=== PATIENT | female | born 1995 | race Caucasian/White ===

== ENCOUNTER → 2016-08-05 | Outpatient (CLI) | payer BC, OTHER ==
[~2016-08-05] MED LIST: ANUS2.5C2 TOP; DOCU10ELUD PO; IBUP600T26 PO; MOM30SS PO; PRENTAB9 PO; TYLE325T5 PO
[2016-08-05 15:11] LABS: BASO % 0.3 % (0.0-1.0); EOS # 0.1 K/mm3 (0.0-0.50); EOS % 1.4 % (0.0-3.0); LARGE UNSTAINED CELL # 0.1 K/mm3 (0.0-0.4); LARGE UNSTAINED CELL % 1.2 % (0.0-4.0); LYMPH # 1.5 K/mm3 (1.5-6.5); LYMPH % 17.1 % (24.0-44.0); MEAN CORPUSCULAR HGB CONC 34.5 g/dl (32.0-36.5); MONO # 0.3 K/mm3 (0.0-0.8); MONO % 3.3 % (0.0-5.0); NEUTROPHILS # 6.3 K/mm3 (1.8-7.7); NEUTROPHILS % 76.7 % (36.0-66.0); PLATELET COUNT, AUTOMATED 249 k/mm3 (150-450); RED CELL DISTRIBUTION WIDTH 14.3 % (11.5-14.5); WHITE BLOOD COUNT 8.2 K/mm3 (4.0-10.0)
[2016-08-06 10:45] LABS: HBsAg Prenatal NEGATIVE (NEGATIVE)
== END ==
LOC: M LAB 13:39
PROVIDERS: ATTEND Specialist
DX: Z34.81 Encounter for supervision of other normal pregnancy, first trimester (principal)

== ENCOUNTER → 2016-08-14 | Outpatient (CLI) | payer BC, OTHER ==
--- NOTE | 2016-08-15 05:27 | REP ---
Clinical: Anatomical evaluation. Comparison: None. Findings: Examination demonstrates a single live intrauterine in variable presentation. motion is identified by technologist. Placenta is noted posteriorly and grade 0 without evidence for placenta previa or abruption. Amniotic fluid volume is normal. Cervix measures 4.1 cm in length and appears closed. No evidence for nuchal cord. Gestational age by LMP 18 weeks 3 days with VERN 01/12/2017 . Gestational age by current measurements 18 weeks 6 days with VERN 01/09/2017 . FHR equals 147 beats per minute. BPD 4.1 cm 18 weeks 2 days HC 16.0 cm 18 weeks 6 days AC 14.0 cm 19 weeks 3 days FL 2.7 cm 18 weeks 2 days HL 2.9 cm 19 weeks 3 days HC/AC ratio 1.15 Estimated weight 260 grams ( 63rd percentile). Anatomical assessment demonstrates normal structures including cranium, choroid plexus, cavum, cerebellum/posterior fossa, facial features, lungs, four-chamber heart/ventricular outflow tracts, diaphragm, stomach, cord insertion/three-vessel cord, kidneys/bladder, spine, and extremities. Impression: 1. Single live intrauterine in variable presentation demonstrating appropriate interval growth. 2. Anatomical assessment is complete and normal. Signed by Jose Levy MD 08/15/2016 05:19 A
== END ==
LOC: M RAD 16:10
PROVIDERS: ATTEND Obstetrics & Gynecology
DX: Z36 Encounter for antenatal screening of mother (principal); Z3A.18 18 weeks gestation of pregnancy

== ENCOUNTER → 2016-09-18 | Outpatient (REF) | payer BC, OTHER | LOC: M LAB REF 13:07 | PROVIDERS: ATTEND Specialist | DX: Z36 Encounter for antenatal screening of mother (principal) ==

== ENCOUNTER → 2016-10-23 | Outpatient (REF) | payer OTHER | LOC: M LAB REF 16:55 | PROVIDERS: ATTEND Specialist | DX: Z36 Encounter for antenatal screening of mother (principal) ==

== ENCOUNTER → 2016-11-06 | Outpatient (CLI) | payer BC, OTHER ==
[2016-11-06 15:07] LABS: BASO % 0.3 % (0.0-1.0); EOS # 0.2 K/mm3 (0.0-0.50); EOS % 1.6 % (0.0-3.0); LARGE UNSTAINED CELL # 0.2 K/mm3 (0.0-0.4); LARGE UNSTAINED CELL % 1.8 % (0.0-4.0); LYMPH # 1.6 K/mm3 (1.5-6.5); LYMPH % 14.5 % (24.0-44.0); MEAN CORPUSCULAR HEMOGLOBIN 28.5 pg (27.0-33.0); MEAN CORPUSCULAR HGB CONC 33.3 g/dl (32.0-36.5); MEAN CORPUSCULAR VOLUME 85.6 fl (80.0-96.0); MONO # 0.4 K/mm3 (0.0-0.8); MONO % 3.7 % (0.0-5.0); NEUTROPHILS # 7.8 K/mm3 (1.8-7.7); NEUTROPHILS % 78.1 % (36.0-66.0); PLATELET COUNT, AUTOMATED 213 k/mm3 (150-450)
== END ==
LOC: M LAB 13:10
PROVIDERS: ATTEND Specialist
DX: Z34.82 Encounter for supervision of other normal pregnancy, second trimester (principal)

== ENCOUNTER → 2016-12-23 | Outpatient (CLI) | payer BC, OTHER ==
--- NOTE | 2016-12-23 15:52 | REP ---
OB ULTRASOUND: Real-time sonographic evaluation of the gravid uterus is performed. There is a single living intrauterine gestation. Estimated gestational age is 37 weeks 1 day. EDC 01/12/2017. Today's measurements indicate appropriate growth. BPD 94 mm = 38 weeks 0 days, 63rd percentile HC 338 mm = 38 weeks 6 days, 79th percentile AC 342 mm = 38 weeks 1 day, 65th percentile Femur length 76 mm = 38 weeks 5 days, 74th percentile HC/AC ratio 0.99 within normal range. Estimated weight 3459 grams, 75th percentile. Cervix is closed and measures 4.2 cm in length. heart rate 139 beats per minute. Amniotic fluid within normal limits, JEANNE 16.5 within normal range of 7.5-24.4. S/D ratio 2.12 within normal range. RI 0.53 slightly below normal range of 0.59 to 0.75. SEEN/GROSSLY UNREMARKABLE Lateral ventricles No Posterior fossa No Upper lip Yes Four-chamber heart Yes LVOT Yes RVOT Yes Stomach Yes Cord insertion Yes Three vessel cord Yes Kidneys Yes Bladder Yes Spine Yes position: Vertex. Placenta: Fundal and grade 1 with no previa or abruption. Signed by Román Wade MD 12/24/2016 04:30 P
== END ==
LOC: M RAD 14:13
PROVIDERS: ATTEND Advanced Practice Midwife
DX: Z36.2 Encounter for other antenatal screening follow-up (principal)

== ENCOUNTER 2017-01-13 15:19 | Inpatient (IN) | payer BC, OTHER ==
[~2017-01-13] VITALS: Ht 152.4 cm; Wt 68.4 kg
[2017-01-13] VITALS (40 sets, daily range): BP systolic 93–129; BP diastolic 54–83
[2017-01-13] MEDS ORDERED: OXYTOCIN DRIP 30 UNITS in APPROPRIATE DILUENT 1 EA IV SCH ×2 (16:15→23:31)
[2017-01-13 16:29] LABS: MEAN CORPUSCULAR HEMOGLOBIN 26.5 pg (27.0-33.0); MEAN CORPUSCULAR HGB CONC 32.5 g/dl (32.0-36.5); MEAN CORPUSCULAR VOLUME 81.6 fl (80.0-96.0); PLATELET COUNT, AUTOMATED 203 10^3/uL (150-450); RED CELL DISTRIBUTION WIDTH 14.7 % (11.5-14.5); WHITE BLOOD COUNT 11.4 10^3/uL (4.0-10.0)
[2017-01-13] MEDS: LR 1,000 ML IV SCH ×2 (16:33→21:33)
[2017-01-13] MEDS ORDERED: FENTANYL 2MCG/ML ROPIVACAINE 0.2% IN 0.9% NACL 200ML IVBAG As Ordered ONE (19:50)
[2017-01-13] MEDS ORDERED: ePHEDrine SULFATE 25 MG/5 ML(5MG/ML) SYRINGE IV PRN (20:30)
[2017-01-13] MEDS ORDERED: LACTATED RINGER'S 1000 ML IV PRN (20:30)
[2017-01-13] MEDS ORDERED: ONDANSETRON 4MG/2ML VIAL (J2405) IV PRN (20:30)
[2017-01-13] MEDS ORDERED: diphenhydrAMINE INJ 50MG/ML VIAL (J1200) IV PRN (20:30)
[2017-01-13] MEDS ORDERED: FENTANYL/ROPIVACAINE/NACL BAG 200 ML EPIDURAL SCH (20:30)
[2017-01-13] MEDS ORDERED: NALOXONE INJ 0.4 MG/1 ML VIAL (J2310) IV PRN (20:30)
[2017-01-13] MEDS ORDERED: REFRIGERATOR IV KEYS XX PRN (20:30)
[2017-01-13] MEDS ORDERED: EPIDURAL/PCA KEYS XX PRN (20:30)
[2017-01-13] MEDS ORDERED: EPIDURAL COMMENT XX SCH (20:30)
[2017-01-13] MEDS ORDERED: DIBUCAINE 1% OINTMENT 30GM TOP PRN (23:45)
[2017-01-13] MEDS ORDERED: ACETAMINOPHEN TAB 650MG DOSE (2X325MG) PO PRN (23:45)
[2017-01-13] MEDS ORDERED: MEASLES,MUMPS,RUBELLA VACCINE INJ (MMR-II) (90707) SC SCH (23:45)
[2017-01-13] MEDS ORDERED: METHYLERGONOVINE MALEATE 0.2 MG TAB PO PRN (23:45)
[2017-01-13] MEDS ORDERED: DOCUSATE SODIUM 100 MG CAP PO PRN (23:45)
[2017-01-13] MEDS ORDERED: RHOGAM 300 MCG (1500 IU) INJ (J2790) IM SCH (23:45)
[2017-01-14 01:10] VITALS: BP 118/70
[2017-01-14] MEDS: IBUPROFEN 600 MG TAB PO PRN ×3 (05:47→19:34)
[2017-01-14 06:13] VITALS: BP 110/66
[2017-01-14] MEDS: PRENATAL VITAMINS CHEWABLE TABLET PO SCH (08:08)
[2017-01-14 18:00] VITALS: BP 130/70
[2017-01-15 06:00] VITALS: BP 118/67
[2017-01-15] MEDS: IBUPROFEN 600 MG TAB PO PRN (07:58)
[2017-01-15] MEDS: PRENATAL VITAMINS CHEWABLE TABLET PO SCH (07:58)
== END 2017-01-15 10:45 | disposition home or self-care (01) | DRG 560 ==
LOC: M LDI 15:19 → M OBS 01-14 00:50
PROVIDERS: ADMIT Advanced Practice Midwife; ATTEND Advanced Practice Midwife
PROC: 3E033VJ Introduction of Other Hormone into Peripheral Vein, Percutaneous Approach (ICD-10-PCS; principal; 2017-01-13)
PROC: 10907ZC Drainage of Amniotic Fluid, Therapeutic from Products of Conception, Via Natural or Artificial Opening (ICD-10-PCS; 2017-01-13)
DX: O66.0 Obstructed labor due to shoulder dystocia (principal); O69.82X0 Labor and delivery complicated by other cord entanglement, without compression, not applicable or unspecified; Z37.0 Single live birth; Z3A.40 40 weeks gestation of pregnancy; Z79.899 Other long term (current) drug therapy

== ENCOUNTER → 2017-10-02 | Outpatient (CLI) | payer BC, MEDICAID, OTHER | LOC: M RAD 16:07 | DX: Z36.89 Encounter for other specified antenatal screening (principal); Z3A.19 19 weeks gestation of pregnancy | CPT/HCPCS: 76811 ==

== ENCOUNTER → 2017-12-22 | Outpatient (CLI) | payer BC, MEDICAID ==
[2017-12-22 18:17] LABS: BASO % 0.4 % (0.0-1.0); EOS # 0.2 10^3/uL (0.0-0.50); EOS % 2.2 % (0.0-3.0); HEMATOCRIT 33.8 % (36.0-47.0); HEMOGLOBIN 11.4 g/dl (12.0-15.5); IMMATURE GRANULOCYTE % 0.7 % (0-3.0); LYMPH % 21.2 % (24.0-44.0); MEAN CORPUSCULAR HEMOGLOBIN 28.8 pg (27.0-33.0); MEAN CORPUSCULAR HGB CONC 33.7 g/dl (32.0-36.5); MEAN CORPUSCULAR VOLUME 85.4 fl (80.0-96.0); MONO # 0.6 10^3/uL (0.0-0.8); MONO % 6.6 % (0.0-5.0); NEUTROPHILS # 6.5 10^3/uL (1.8-7.7); NEUTROPHILS % 68.9 % (36.0-66.0); PLATELET COUNT, AUTOMATED 201 10^3/uL (150-450); RED BLOOD COUNT 3.96 10^6/uL (4.00-5.40); RED CELL DISTRIBUTION WIDTH 13.2 % (11.5-14.5); WHITE BLOOD COUNT 9.5 10^3/uL (4.0-10.0)
[2017-12-22 20:37] LABS: ALBUMIN 2.9 GM/DL (3.2-5.2); ALBUMIN/GLOBULIN RATIO 0.81 (1.00-1.93); ALKALINE PHOSPHATASE 96 U/L (45-117); ALT/SGPT 18 U/L (12-78); AST/SGOT 13 U/L (7-37); BILIRUBIN,DIRECT < 0.1 MG/DL (0.0-0.2); BILIRUBIN,TOTAL 0.2 MG/DL (0.2-1.0); TOTAL PROTEIN 6.5 GM/DL (6.4-8.2)
[2017-12-25 14:47] LABS: BILE ACIDS FRACTIONATED 4.8 umol/L (4.7-24.5)
== END ==
LOC: M LAB 17:51
DX: Z34.82 Encounter for supervision of other normal pregnancy, second trimester (principal)
CPT/HCPCS: 80076

== ENCOUNTER → 2017-12-25 | Outpatient (CLI) | payer BC, MEDICAID ==
[2017-12-25 13:04] LABS: BASO % 0.3 % (0.0-1.0); EOS # 0.2 10^3/uL (0.0-0.50); EOS % 1.7 % (0.0-3.0); HEMATOCRIT 32.6 % (36.0-47.0); HEMOGLOBIN 10.8 g/dl (12.0-15.5); IMMATURE GRANULOCYTE % 0.7 % (0-3.0); LYMPH # 1.5 10^3/uL (1.5-6.5); LYMPH % 15.7 % (24.0-44.0); MEAN CORPUSCULAR HEMOGLOBIN 28.4 pg (27.0-33.0); MEAN CORPUSCULAR HGB CONC 33.1 g/dl (32.0-36.5); MEAN CORPUSCULAR VOLUME 85.8 fl (80.0-96.0); MONO # 0.6 10^3/uL (0.0-0.8); MONO % 6.1 % (0.0-5.0); NEUTROPHILS # 7.1 10^3/uL (1.8-7.7); NEUTROPHILS % 75.5 % (36.0-66.0); PLATELET COUNT, AUTOMATED 197 10^3/uL (150-450); RED CELL DISTRIBUTION WIDTH 13.5 % (11.5-14.5); WHITE BLOOD COUNT 9.4 10^3/uL (4.0-10.0)
[2017-12-25 14:58] LABS: ALBUMIN 2.7 GM/DL (3.2-5.2); ALBUMIN/GLOBULIN RATIO 0.69 (1.00-1.93); ALKALINE PHOSPHATASE 111 U/L (45-117); ALT/SGPT 12 U/L (12-78); AST/SGOT 10 U/L (7-37); BILIRUBIN,DIRECT < 0.1 MG/DL (0.0-0.2); BILIRUBIN,TOTAL 0.2 MG/DL (0.2-1.0); GLUCOSE CHALLENGE TEST 1 HOUR 96 MG/DL (LESS THAN 140); TOTAL PROTEIN 6.6 GM/DL (6.4-8.2)
[2017-12-28 14:12] LABS: BILE ACIDS FRACTIONATED 5.5 umol/L (4.7-24.5)
== END ==
LOC: M LAB 11:11
DX: Z34.82 Encounter for supervision of other normal pregnancy, second trimester (principal)
CPT/HCPCS: 82950

== ENCOUNTER → 2018-02-04 | Outpatient (REF) | payer BC, MEDICAID | LOC: M LAB REF 17:01 | DX: Z34.83 Encounter for supervision of other normal pregnancy, third trimester (principal); Z3A.36 36 weeks gestation of pregnancy; Z36.85 Encounter for antenatal screening for Streptococcus B | CPT/HCPCS: 87081 ==

== ENCOUNTER 2018-02-19 04:58 | Inpatient (IN) | payer BC, MEDICAID ==
[2018-02-19] MEDS: LR 800 ML IV (05:38)
[2018-02-19 05:49] LABS: HEMATOCRIT 32.2 % (36.0-47.0); HEMOGLOBIN 10.4 g/dl (12.0-15.5); MEAN CORPUSCULAR HEMOGLOBIN 26.3 pg (27.0-33.0); MEAN CORPUSCULAR HGB CONC 32.3 g/dl (32.0-36.5); MEAN CORPUSCULAR VOLUME 81.5 fl (80.0-96.0); PLATELET COUNT, AUTOMATED 217 10^3/uL (150-450); RED BLOOD COUNT 3.95 10^6/uL (4.00-5.40); RED CELL DISTRIBUTION WIDTH 13.8 % (11.5-14.5); WHITE BLOOD COUNT 9.9 10^3/uL (4.0-10.0)
[2018-02-19] MEDS: LR 1,000 ML IV ×2 (07:31→09:15)
[2018-02-19] MEDS: BICITRA 30ML SOLN UDC PO (07:36)
[2018-02-19] MEDS ORDERED: METOCLOPRAMIDE INJ 10MG/2ML VIAL (J2765) IV ×2 (07:53→09:15)
[2018-02-19] MEDS ORDERED: NALOXONE INJ 0.4 MG/1 ML VIAL (J2310) IV ×2 (07:53)
[2018-02-19] MEDS ORDERED: ONDANSETRON 4MG/2ML VIAL (J2405) IV ×3 (07:53→09:15)
[2018-02-19] MEDS ORDERED: MORPHINE PRES-FREE INJ 10 MG/10 ML VIAL (J2274) As Ordered (08:14)
[2018-02-19] MEDS ORDERED: ONDANSETRON 4MG/2ML VIAL (J2405) As Ordered (08:14)
[2018-02-19] MEDS ORDERED: ePHEDrine SULFATE 25 MG/5 ML(5MG/ML) SYRINGE As Ordered (08:14)
[2018-02-19] MEDS ORDERED: OXYTOCIN INJ 10 UNITS/ML VIAL (J2590) As Ordered (08:14)
[2018-02-19] MEDS ORDERED: dexameTHASONE 4 MG/ML 1ML VIAL (J1100) As Ordered (08:14)
[2018-02-19] MEDS ORDERED: PHENYLephrine HCL 500 MCG/5 ML (100MCG/ML) SYRINGE (J2370) As Ordered (08:14)
[2018-02-19] MEDS ORDERED: KETOROLAC 60 MG/2 ML VIAL (J1885) As Ordered (08:14)
[2018-02-19] MEDS ORDERED: BUPIVACAINE/DEXTROSE 0.75% 2 ML AMP As Ordered (08:14)
[2018-02-19] MEDS: PRENATAL VITAMINS CHEWABLE TABLET PO (09:00)
[2018-02-19] MEDS ORDERED: DOCUSATE SODIUM 100 MG CAP PO (09:00)
[2018-02-19] MEDS ORDERED: fentaNYL 100 MCG/2 ML INJECTION (J3010) IV (09:15)
[2018-02-19] MEDS ORDERED: MEPERIDINE INJ 25 MG/ML VIAL (J2175) IV (09:15)
[2018-02-19] MEDS ORDERED: PERCOCET 5MG/325MG TAB PO (09:15)
[2018-02-19] MEDS ORDERED: OXYTOCIN 30 UNITS IN 0.9% NaCl 500ML IV BAG (J2590) As Ordered (09:18)
[2018-02-19] MEDS: OXYTOCIN DRIP 30 UNITS in APPROPRIATE DILUENT 1 EA IV (09:27)
[2018-02-19] MEDS ORDERED: NALBUPHINE HCL 10 MG/ML AMP (J2300) As Ordered (09:45)
[2018-02-19] MEDS: NALBUPHINE HCL 10 MG/ML AMP (J2300) IV ×2 (09:52→14:48)
[2018-02-19] MEDS: RHOGAM 300 MCG (1500 IU) INJ (J2790) IM (12:53)
[2018-02-19] MEDS: MEASLES,MUMPS,RUBELLA VACCINE INJ (MMR-II) (90707) SC (12:54)
[2018-02-19] MEDS: KETOROLAC 30 MG/ML VIAL (J1885) IV ×2 (14:47→21:08)
[2018-02-20] MEDS: KETOROLAC 30 MG/ML VIAL (J1885) IV (03:20)
[2018-02-20 06:39] LABS: HEMATOCRIT 26.2 % (36.0-47.0); HEMOGLOBIN 8.6 g/dl (12.0-15.5); MEAN CORPUSCULAR HEMOGLOBIN 26.1 pg (27.0-33.0); MEAN CORPUSCULAR HGB CONC 32.8 g/dl (32.0-36.5); MEAN CORPUSCULAR VOLUME 79.6 fl (80.0-96.0); PLATELET COUNT, AUTOMATED 189 10^3/uL (150-450); RED BLOOD COUNT 3.29 10^6/uL (4.00-5.40); RED CELL DISTRIBUTION WIDTH 13.8 % (11.5-14.5); WHITE BLOOD COUNT 9.5 10^3/uL (4.0-10.0)
[2018-02-20] MEDS: PRENATAL VITAMINS CHEWABLE TABLET PO (07:39)
[2018-02-20] MEDS: PERCOCET 5MG/325MG TAB PO ×3 (07:39→19:58)
[2018-02-20] MEDS: IBUPROFEN 800 MG TAB PO ×2 (10:09→18:29)
[2018-02-21] MEDS: IBUPROFEN 800 MG TAB PO ×2 (02:02→10:31)
[2018-02-21] MEDS: PERCOCET 5MG/325MG TAB PO (02:03)
[2018-02-21] MEDS: PRENATAL VITAMINS CHEWABLE TABLET PO (07:44)
== END 2018-02-21 11:50 | disposition home or self-care (01) | DRG 540 ==
LOC: M LDI 04:58 → M OBS 12:25
PROVIDERS: Specialist
PROC: 10D00Z1 Extraction of Products of Conception, Low, Open Approach (ICD-10-PCS; principal; 2018-02-19 07:40)
PROC: 0UB70ZZ Excision of Bilateral Fallopian Tubes, Open Approach (ICD-10-PCS; 2018-02-19 07:40)
DX: O26.899 Other specified pregnancy related conditions, unspecified trimester (principal); N81.89 Other female genital prolapse; Z37.0 Single live birth; Z3A.39 39 weeks gestation of pregnancy; Z30.2 Encounter for sterilization

== ENCOUNTER 2019-04-29 13:27 | Day surgery (SDC) | payer BC, MEDICAID ==
[~2019-04-29] VITALS: Ht 154.9 cm; Wt 57.7 kg
[~2019-04-29 13:27] MED LIST changes: +APAP325T4 PO; -DOCU10ELUD PO; +DOCU5LIQ PO; +IBUP80TA PO; +OXYC1TAB23 PO; +PRENTAB55 PO; +ceFAZolin SOD 2 GM in IV 1 EA IV ONE
[2019-04-29] MEDS ORDERED: MIDAZOLAM INJ 2 MG/2 ML VIAL (J2250) As Ordered ONE (16:01)
[2019-04-29] MEDS ORDERED: fentaNYL 250 MCG/5 ML INJECTION (J3010) As Ordered ONE (16:01)
[2019-04-29] MEDS ORDERED: ROCURONIUM BROMIDE 50 MG/5 ML VIAL As Ordered ONE (16:02)
[2019-04-29] MEDS ORDERED: KETOROLAC 60 MG/2 ML VIAL (J1885) As Ordered ONE (16:02)
[2019-04-29] MEDS ORDERED: dexameTHASONE 4 MG/ML 1ML VIAL (J1100) As Ordered ONE (16:02)
[2019-04-29] MEDS ORDERED: LIDOCAINE 2% INJ 100 MG/5 ML SDV (FOR ANES.) As Ordered ONE (16:02)
[2019-04-29] MEDS ORDERED: ONDANSETRON 4MG/2ML VIAL (J2405) As Ordered ONE (16:02)
[2019-04-29] MEDS ORDERED: propofoL 200 MG/20 ML VIAL As Ordered ONE ×2 (16:02→18:40)
[2019-04-29] MEDS ORDERED: SUGAMMADEX SODIUM 500 MG/5 ML VIAL (BRIDION) As Ordered ONE (16:06)
[2019-04-29] MEDS ORDERED: NEOSTIGMINE 10 MG/10 ML VIAL (J2710) As Ordered ONE (16:07)
[2019-04-29] MEDS ORDERED: GLYCOPYRROLATE INJ 0.2 MG/ML 2 ML VIAL As Ordered ONE (16:07)
[2019-04-29] MEDS ORDERED: BUPIVACAINE HCL 0.25% 30 ML VIAL As Ordered ONE (16:37)
[2019-04-29] MEDS ORDERED: LIDOCAINE 1% SDV INJ 30 ML VIAL As Ordered ONE (16:37)
[2019-04-29] MEDS ORDERED: ACETAMINOPHEN 1000MG 100ML IV BTL (OFIRMEV) (J0131 PER 10MG) As Ordered ONE (17:47)
[2019-04-29] MEDS ORDERED: ePHEDrine SULFATE 25 MG/5 ML(5MG/ML) SYRINGE As Ordered ONE (17:59)
[2019-04-29] MEDS ORDERED: fentaNYL 100 MCG/2 ML INJECTION (J3010) IV PRN (19:15)
[2019-04-29] MEDS ORDERED: LR 1,000 ML IV SCH (19:15)
[2019-04-29] MEDS ORDERED: oxyCODONE 5MG TAB PO PRN (19:15)
[2019-04-29] MEDS ORDERED: ONDANSETRON 4MG/2ML VIAL (J2405) IV PRN (19:15)
[2019-04-29 20:07] VITALS: BP 93/56
[2019-04-29] MEDS ORDERED: NORCO, ANEXSIA 5/325MG TABLET (HYDROcodone/ACETAMINOPHEN) PO PRN (20:16)
[2019-04-30] MEDS ORDERED: KETOROLAC 30 MG/ML VIAL (J1885) IV PRN
--- NOTE | 2019-05-03 14:50 | ROOPDOC ---
[facility] Report Of Operation Report of Operation DATE OF PROCEDURE: 04/29/19 PREPROCEDURE DIAGNOSES: umbilical hernia, diastases. POSTPROCEDURE DIAGNOSES: umbilical hernia, diastases. PROCEDURE: open umbilical hernia repair with ventral patch mesh (PVP 6.4 cms) SURGEON: Jairo Samaniego MD [employer] HELPER: ANESTHESIA: General Anesthesia (LMA). ESTIMATED BLOOD LOSS: Approximately 20 mL. 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 DESCRIPTION OF PROCEDURE: Patient was given 2 g Ancef IV preoperatively for surgical prophylaxis. He was brought to the operating room, placed supine on the table. Compression boots were placed on both lower extremities for DVT prophylaxis. Gen. endotracheal anesthesia started. His abdomen was widely prepped and draped in usual sterile fashion.We paused for a surgical timeout using both pre-incision safety checklist to verify correct patient, procedure site and additional clinical information prior to beginning the procedure Patient has a small nodular bulging at the bottom of the umbilical cleft consistent with a small umbilical hernia. The umbilicus is shallow but pulled downward by the laxity of the abdominal tissue from previous . There is a nodularity just underneath the skin cleft pushing outward at the skin. She has about a4-5 cms diasases of the midline muscle at the level of the umbilicus. Surrounding skin of the umbilical cleft is loose and lax. The area around the umbilicus was widely infiltrated with local anesthesia using 1% lidocaine and 1/4% Marcaine mixture. A curvilinear skin incision was created at the bottom of the umbilical cleft and slowly deepened through the subcutaneous tissue. Umbilical skin cleft was dissected free off the underlying tissues. I couldn't identify a small fatty nodularity that was stuck on the opening of the umbilical fascial defect. There are 2 separate umbilical defects about 1 cm apart each less than a centimeter in size which had to connect resulting in roughly about a 2 cm defect.. This was removed. I then introduced a piece of 4 x 4 gauze to further reduce any underlying tissues away from the fascial defect. The subcuta neous tissue was dissected free off the anterior fascia for about 2 cm. The edges were freshened up and appears to be able to come together without tension. I then lifted the edges of the fascial defect to try to separate the peritoneum and create a preperitoneal flap to accommodate a small mesh given her diastases and the laxity and thinning of the abdominal wall fascia. The peritoneal flap was fairly robust on the right side but flimsy on the left side so I went into the posterior rectus sheath on the left side. The flap was then closed with a running suture of 0 Vicryl. Unfortunately at the lower portion this pulled through creating a small defect. The 6.4 cm PVP mesh was introduced slightly exposed at the lower portion where the peritoneal flap rent accord. Most often mesh are preperitoneal. This was secured to the fascia with 0 Ethibond in the 4 cardinal corners. The anterior fascial flap was closed with mattress sutures of 0 Ethibond. The umbilical cleft. Placed back in its anatomic position using 3-0 Vicryl. Subcutaneous space was closed with interrupted sutures of 3-0 Vicryl. Subcuticular suture using 4-0 Monocryl was then used to close the skin. Steri- Strips and gauze dressings were placed for wound coverage. Patient tolerated procedure well. Was promptly awakened, extubated and brought to recovery room in stable condition. JAIRO SAMANIEGO MD May 03, 2019 14:50
== END 2019-04-29 20:35 | disposition home or self-care (01) ==
LOC: M SDC 13:27
PROVIDERS: ATTEND Surgery
DX: K42.9 Umbilical hernia without obstruction or gangrene (principal); M62.08 Separation of muscle (nontraumatic), other site; G43.909 Migraine, unspecified, not intractable, without status migrainosus; Z91.040 Latex allergy status
CPT/HCPCS: 49585; C1781; J0131; J0690; J1100; J1885; J2250; J2405; J3010

== ENCOUNTER 2019-05-24 23:03 | Emergency (ER) | payer BC, MEDICAID ==
[~2019-05-24] VITALS: Ht 152.4 cm; Wt 57.6 kg
[~2019-05-24 23:03] MED LIST changes: -ceFAZolin SOD 2 GM in IV 1 EA IV ONE
[2019-05-24 23:06] VITALS: BP 140/75
[2019-05-24] MEDS ORDERED: ACETAMINOPHEN TAB 650MG DOSE (2X325MG) PO ONE (23:45)
[2019-05-25] MEDS ORDERED: AMOX500C PO (00:05)
[2019-05-25] MEDS ORDERED: AMOXICILLIN 500 MG CAP PO ONE (00:15)
== END 2019-05-25 00:10 | disposition home or self-care (01) ==
LOC: M ED 23:03
DX: J02.0 Streptococcal pharyngitis (principal); Z91.040 Latex allergy status